=== PATIENT | female | born 1940 | race Caucasian/White ===

== ENCOUNTER → 2017-12-08 | Outpatient (CLI) | payer MEDICARE, OTHER ==
--- NOTE | 2017-12-08 15:03 | PCVCIMAG ---
APPROVED REPORT Study performed: 12/08/2017 11:26:46 EXAM: Comprehensive 2D, Doppler, and color-flow Echocardiogram Patient Location: Echo lab Status: routine BSA: 1.89 HR: 74 bpmBP: 120/76 mmHg Rhythm: NSR Other Information Study Quality: Adequate Risk Factors: Cardiac Risk Factors: Hyperlipidemia, HTN Indications Dyspnea Chest Pain Elevated CA Score 2D Dimensions IVSd: 12.43 (7-11mm)LVOT Diam: 19.00 (18-24mm) LVDd: 35.31 mm PWd: 10.83 (7-11mm)Ascending Ao: 32.17 (22-36mm) LVDs: 21.46 (25-40mm) Left Atrium: 35.63 (27-40mm) Aortic Root: 32.14 mm LV Single Plane 4CH: 58.56 % LV Single Plane 2CH: 57.81 % Biplane EF: 60.2 % Volumes Left Atrial Volume (Systole) Single Plane 4CH: 54.81 mLSingle Plane 2CH: 52.01 mL LA ESV Index: 31.00 mL/m2 Aortic Valve AoV Peak Mike.: 1.27 m/s AO Peak Gr.: 6.47 mmHgLVOT Max P.09 mmHg LVOT Max V: 0.88 m/s MATIAS Vmax: 1.86 cm2 Mitral Valve E/A Ratio: 0.7 MV Decel. Time: 273.62 ms MV E Max Mike.: 0.74 m/s MV A Mike.: 1.05 m/s IVRT: 86.51 ms TDI E/Lateral E': 18.50E/Medial E': 14.80 Medial E' Mike.: 0.05 m/s Lateral E' Mike.: 0.04 m/s Pulmonary Valve PV Peak Mike.: 0.92 m/sPV Peak Gr.: 3.37 mmHg MI End Vmax: 1.19 m/s Pulmonary Vein P Vein S: 0.45 m/sP Vein A: 0.25 m/s P Vein D: 0.22 m/sP Vein A Dur.: 100.3 msec P Vein S/D Ratio: 2.05 Tricuspid Valve RAP Estimate: 7.00 mmHg Left Ventricle The left ventricle is normal size. There is normal LV segmental wall motion. Borderline concentric left ventricular hypertrophy. Left ventricular systolic function is normal. The left ventricular ejection fraction is within the normal range. LVEF is 55-60%. Grade I - abnormal relaxation pattern. Right Ventricle The right ventricle is normal size. The right ventricular systolic function is normal. Atria The left atrium size is normal. The right atrium size is normal. Aortic Valve The Aortic valve is mildly sclerotic. No aortic regurgitation is present. There is no aortic valvular stenosis. Mitral Valve There is mitral annular calcification. There is no mitral valve regurgitation noted. No evidence of mitral valve stenosis. Tricuspid Valve The tricuspid valve is normal in structure. There is no tricuspid valve regurgitation noted. Pulmonic Valve The pulmonary valve is normal in structure. Trace pulmonic regurgitation. Great Vessels The aortic root is normal in size. IVC is normal in size and collapses >50% with inspiration. Pericardium There is no pericardial effusion. <Conclusion> The left ventricle is normal size. Left ventricular systolic function is normal. Grade I - abnormal relaxation pattern. The right ventricle is normal size. The left atrium size is normal. The Aortic valve is mildly sclerotic. There is no aortic valvular stenosis. There is mitral annular calcification. There is no mitral valve regurgitation noted. There is no tricuspid valve regurgitation noted.
== END | disposition home or self-care (01) ==
LOC: PCVCIMAG 14:47
PROVIDERS: ATTEND Internal Medicine Cardiovascular Disease
DX: I10 Essential (primary) hypertension (principal); E78.00 Pure hypercholesterolemia, unspecified; R60.9 Edema, unspecified; R07.89 Other chest pain; Z79.82 Long term (current) use of aspirin
CPT/HCPCS: 93005; 93306; G0463

== ENCOUNTER → 2017-12-12 | Outpatient (CLI) | payer MEDICARE, OTHER ==
[~2017-12-12] MED LIST: REGADENOSON 0.4 MG/5 ML DISP.SYRIN. IV ONE
--- NOTE | 2017-12-12 16:20 | PCVCIMAG ---
APPROVED REPORT Imaging Protocol: Rest Tc-99m/Stress Tc-99m 1 day Study performed: 12/12/2017 13:40:59 Indication: Elevated Calcium Score, Chest Pain, Dyspnea Patient Location: Out-Patient Stress Nurse: Rosalind Trimble RN PA Tech:Josef Kumar MIKALADEVORAH Ht: 5 ft 4 in Wt: 185 lbs BSA: 1.89 m2 HR: 57 bpm BP: 138/88 mmHg BMI: 31.75 Rhythm: NSR Medical History Medical History: Age, Hyperlipidemia, HTN Medications: ASA, Zyrtec, Boniva, Rosuvastatin Allergies: Neosporin Resting Data Rest SPECT myocardial perfusion imaging was performed in supine position 45 minutes following the intravenous injection of 10.4 mCi of Tc-99m Sestamibi. Time of rest injection: 1300 Date: 12/12/2017 Administration Route: IV Administration Site: Left AC Pharmacologic Stress Pharmacologic stress test was performed by injecting Regadenoson 0.4 mg IV push over 10-15 seconds immediately followed by the intravenous injection of 34.8 mCi of Tc-99m Sestamibi. Time of stress injection: 1415 Date: 12/12/2017 Administration Route: IV Administration Site: Left AC Gated Stress SPECT was performed 45 minutes after stress injection. The images were gated to evaluate regional wall motion and calculate left ventricular ejection fraction. Stress Test Details Stress Test: Pharmacologic stress testing performed using 0.4 mg of regadenoson per 5 mL given IV over 10 seconds. Reason for pharmacologic stress test: physical limitation. HRMax Heart Rate (APMHR): 145 bpm Resting HR: 57 bpmTarget HR (85% APMHR): 123 bpm Max HR Achieved: 94 bpm % of APMHR: 64 Recovery HR: 67 bpm BP Resting BP: 138/88 mmHg Recovery BP: 112/62 mmHg ECG Resting ECG: NSR Stress ECG: NSR ST Change: Non-ischemic Arrhythmia: PAC's Recovery ECG: NSR, PAC Clinical Reason for Termination: Completed protocol Stress Symptoms: Headache Symptoms resolved with caffeine. Study Quality Study: Good Study Data Post stress, the left ventricular ejection was 70%.. SSS: 6 SRS: 6 SDS: 2 TID = 0.92. Perfusion There is a medium area of mildly reduced uptake in the distal segment of the inferolateral wall which is seen on the stress images and improves on the resting images. This area thickens and moves normally and is most consistent with ischemia versus artifact. Wall Motion Normal left ventricular wall motion. Nuclear Conclusion ECG Findings: negative for ischemia Clinical Findings: non-diagnostic Nuclear Findings: equivocal Exercise Capacity: not assessed Left Ventricular Function: normal There is a partially reversible defect in the distal inferolateral segment, may be related to artifact but ischemia could not be excluded. There is normal global and segmental LV systolic function.
== END | disposition home or self-care (01) ==
LOC: PCVCIMAG 13:00
PROVIDERS: ATTEND Internal Medicine Cardiovascular Disease
DX: I10 Essential (primary) hypertension (principal); R07.9 Chest pain, unspecified; R06.09 Other forms of dyspnea; E78.5 Hyperlipidemia, unspecified; Z79.82 Long term (current) use of aspirin
CPT/HCPCS: 78452; 93017; A9500; G0463; J2785

== ENCOUNTER → 2018-01-05 | Outpatient (CLI) | payer MEDICARE, OTHER ==
--- NOTE | 2018-01-05 11:52 | PCVCIMAG ---
EXAM: BILATERAL CAROTID DUPLEX INDICATION: Carotid Occlusive Disease. FINDINGS: Doppler Measurements (centimeters per second): RIGHT: Peak CCA-52, Peak ECA-94, Diastolic ICA-13, Peak ICA-66, ICA/CCA Ratio-1.3. LEFT: Peak CCA-51, Peak ECA-153, Diastolic ICA-19, Peak ICA-95, ICA/CCA Ratio-1.9. RIGHT CAROTID: The carotid bulb has mild plaque. The proximal internal carotid artery shows <40% stenosis. The common carotid artery shows no significant stenosis. The external carotid artery shows no significant stenosis. LEFT CAROTID: The carotid bulb has moderate plaque. The proximal internal carotid artery shows 40-50% stenosis. The common carotid artery shows no significant stenosis. The external carotid artery shows 50% stenosis. Antegrade flow in both vertebral arteries. IMPRESSION: <40% stenosis of the right internal carotid artery with mild plaque. 40-50% stenosis of the left internal carotid artery with moderate plaque. LOC:[place] [id number]
== END | disposition home or self-care (01) ==
LOC: PCVCIMAG 10:56
PROVIDERS: ATTEND Internal Medicine
DX: I65.23 Occlusion and stenosis of bilateral carotid arteries (principal); I25.10 Atherosclerotic heart disease of native coronary artery without angina pectoris; I10 Essential (primary) hypertension; E78.5 Hyperlipidemia, unspecified
CPT/HCPCS: 93880